=== PATIENT | female | born 1985 | race Caucasian/White ===

== ENCOUNTER 2021-08-30 13:42 | Emergency (ER) | payer OTHER ==
[2021-08-30 14:46] LABS: #Eosinphils 0.2 10x3/uL (0.0-0.5); #Monocytes 0.5 10x3/uL (0.0-1.1); #Neutrophils 4.7 10x3/uL (1.5-8.4); %Basophils 0.3 % (0.0-2.0); %Eosinophils 2.7 % (0.0-6.0); %Lymphocytes 26.3 % (18.0-47.0); %Monocytes 6.7 % (0.0-10.0); %Neutrophils 63.7 % (40.0-75.0); Hemoglobin 12.2 g/dL (12.0-15.5); Mean Corpuscular HGB CONC 33.2 g/dL (32.0-36.0); Mean Corpuscular Volume 90.6 fl (81.6-98.3); Platelet Count 303 10x3/uL (150-450); RBC Distribution Width 12.8 % (11.5-14.5); Red Blood Cell (RBC) Count 4.06 10x6/uL (3.90-5.03); White Blood Cell (WBC) Count 7.4 10x3/uL (3.5-10.5)
== END 2021-08-30 17:50 | disposition home or self-care (01) ==
LOC: CSHERS 13:42
DX: O20.0 Threatened abortion (principal); Z3A.01 Less than 8 weeks gestation of pregnancy
CPT/HCPCS: 36415; 76856; 84702; 85025; 86900; 86901; 90384; 96372

== ENCOUNTER 2022-05-25 16:52 | Inpatient (IN) | payer OTHER ==
[2022-05-25 17:53] VITALS: BMI 28.3
[2022-05-25] MEDS ORDERED: hydrALAZINE 20 MG/ML VIAL SLOW IVP PRN ×2 (18:35→21:53)
[2022-05-25 19:19] LABS: Fetal Membranes Rupture No Membranes Rupture (No Rupture)
[2022-05-25] MEDS ORDERED: Promethazine HCl 25 MG/ML VIAL IM PRN ×2 (21:53→23:36)
[2022-05-25] MEDS ORDERED: Butorphanol Tartrate 1 MG/ML VIAL SLOW IVP PRN (21:53)
[2022-05-25] MEDS ORDERED: Acetaminophen 500 MG TAB PO PRN (21:53)
[2022-05-25] MEDS ORDERED: Ibuprofen 800 MG TAB PO PRN (21:53)
[2022-05-25] MEDS ORDERED: Ondansetron PF 4 MG/2 ML Vial IVP PRN ×2 (21:53→23:36)
[2022-05-25] MEDS ORDERED: HYDROcodone/Acetaminophen 5/325 mg Tablet PO PRN ×2 (21:53)
[2022-05-25] MEDS ORDERED: Zolpidem Tartrate 5 MG TAB PO PRN (21:53)
[2022-05-25] MEDS ORDERED: Lidocaine 1% (PF) 30 ML VIAL SC PRN (21:53)
[2022-05-25] MEDS ORDERED: Lactated Ringer's 1,000 ML IV SCH (22:00)
[2022-05-25] MEDS ORDERED: NS w/ Oxytocin 30 units 500 ML IV SCH ×2 (22:00)
[2022-05-25] MEDS: Lactated Ringer's 1,000 ML IV SCH (22:15)
[2022-05-25 22:31] LABS: Hemoglobin 11.2 g/dL (12.0-15.5); Mean Corpuscular HGB CONC 34.4 g/dL (32.0-36.0); Mean Corpuscular Hemoglobin 31.1 pg (27.0-33.0); Mean Corpuscular Volume 90.6 fl (81.6-98.3); Mean Platelet Volume 11.2 fl (7.4-10.4); Platelet Count 231 10x3/uL (150-450); RBC Distribution Width 13.8 % (11.5-14.5); White Blood Cell (WBC) Count 12.5 10x3/uL (3.5-10.5)
[2022-05-25] MEDS ORDERED: Fentanyl 2 mcg/Bup 0.1% Cadd 100 ML ONE (22:56)
[2022-05-25 23:04] LABS: Syphilis Antibody Nonreactive (Nonreactive); Syphilis Antibody Index 0.13 S/CO (<1.00 Non-Reactive)
[2022-05-25 23:05] LABS: HBSAg Index 0.26 S/CO (0-0.99); Hep B Surf Ag Non-Reactive S/CO (NonReactive)
[2022-05-25] MEDS: Fentanyl 2 mcg/Bupivacaine 0.1% Cassette 100 ML EPIDURAL SCH (23:30)
[2022-05-25] MEDS ORDERED: Lactated Ringer's 500 ML IV PRN (23:36)
[2022-05-25] MEDS ORDERED: Moisturizing Cream (Eucerin) 113 GM JAR TOP PRN (23:36)
[2022-05-25] MEDS ORDERED: Acetaminophen 325 MG TAB PO PRN (23:36)
[2022-05-25] MEDS ORDERED: Naloxone HCl 0.4 mg/ml Vial IVP PRN ×2 (23:36)
[2022-05-25] MEDS ORDERED: ePHEDrine Sulfate 50 MG/10 ML VIAL SLOW IVP PRN (23:36)
[2022-05-25] MEDS ORDERED: diphenhydrAMINE 50 MG/ML VIAL IVP PRN (23:36)
[2022-05-25] MEDS ORDERED: Communication Order-Pharmacy FS SCH (23:45)
[2022-05-26 05:52] LABS: SARS-CoV-2 NAA Rapid Test Not Detected (NotDetected)
[2022-05-26] MEDS: Fentanyl 2 mcg/Bupivacaine 0.1% Cassette 100 ML EPIDURAL SCH (05:58)
[2022-05-26] MEDS ORDERED: Famotidine/PF 20 mg/2ml Vial SLOW IVP PRN (08:40)
[2022-05-26] MEDS ORDERED: Bicitra 30 ML UDCUP PO PRN (08:40)
[2022-05-26] MEDS ORDERED: CEFAZOLIN 2 GM in Sodium Chloride 0.9% 100 ML IVPB SCH (08:45)
[2022-05-26] MEDS ORDERED: Azithromycin 500 MG in Sodium Chloride 0.9% 250 ML 250 ML IVPB SCH (08:45)
[2022-05-26] MEDS ORDERED: ePHEDrine Sulfate 50 MG/10 ML VIAL ONE (09:10)
[2022-05-26] MEDS ORDERED: Dexamethasone 4 mg/ml Vial ONE (09:10)
[2022-05-26] MEDS ORDERED: Ondansetron PF 4 MG/2 ML Vial ONE (09:10)
[2022-05-26] MEDS ORDERED: Morphine PF 10 MG/10 ML VIAL ONE (09:10)
[2022-05-26] MEDS ORDERED: Ketorolac Tromethamine 30 MG/ML VIAL ONE (09:12)
[2022-05-26] MEDS ORDERED: PHENYLEPHRINE-NS 100 MCG/ML 10 ML SYRINGE ONE (09:12)
[2022-05-26] MEDS ORDERED: Oxytocin 10 UNITS/ML VIAL ONE (09:12)
[2022-05-26] MEDS ORDERED: Lidocaine 2% MPF 10 ML AMP (For Epidural Use) ONE (09:13)
[2022-05-26] MEDS ORDERED: Fentanyl 100 MCG/2 ML VIAL ONE ×2 (09:33→09:58)
[2022-05-26] MEDS ORDERED: Ketamine 50 MG/ML (10ML VIAL) ONE (09:33)
[2022-05-26] MEDS ORDERED: Midazolam HCl 2 mg/2 ml Vial ONE (09:33)
[2022-05-26] MEDS ORDERED: Methylergonovine 0.2 MG/ML VIAL ONE (09:52)
[2022-05-26] MEDS ORDERED: Carboprost 250 MCG/ML AMP ONE (09:53)
[2022-05-26] MEDS ORDERED: Misoprostol 200 MCG TAB ONE (09:53)
[2022-05-26] MEDS ORDERED: Meperidine HCl/PF 25 MG/ML VIAL SLOW IVP PRN (10:34)
[2022-05-26] MEDS ORDERED: Promethazine HCl 25 MG/ML VIAL IM PRN (10:34)
[2022-05-26] MEDS ORDERED: diphenhydrAMINE 50 MG/ML VIAL IVP PRN (10:34)
[2022-05-26] MEDS ORDERED: Naloxone HCl 0.4 mg/ml Vial IV PRN (10:34)
[2022-05-26] MEDS ORDERED: Ondansetron PF 4 MG/2 ML Vial IVP PRN ×2 (10:34→12:42)
[2022-05-26] MEDS ORDERED: HYDROmorphone 2 MG/ML VIAL SLOW IVP PRN (10:34)
[2022-05-26] MEDS ORDERED: Moisturizing Cream (Eucerin) 113 GM JAR TOP PRN (10:34)
[2022-05-26] MEDS ORDERED: Fentanyl 100 MCG/2 ML VIAL SLOW IVP PRN (10:34)
[2022-05-26] MEDS ORDERED: Ondansetron HCl/PF 4 MG/2 ML Vial IVP PRN (10:34)
[2022-05-26] MEDS ORDERED: Naloxone HCl 0.4 mg/ml Vial IVP PRN ×2 (10:34)
[2022-05-26] MEDS ORDERED: Promethazine HCl 25 MG SUPP PR PRN (10:34)
[2022-05-26] MEDS ORDERED: Ketorolac Tromethamine 30 MG/ML VIAL IVP SCH (10:45)
[2022-05-26] MEDS ORDERED: Communication Order-Pharmacy FS SCH (10:45)
[2022-05-26] MEDS ORDERED: Bisacodyl 10 MG SUPP PR PRN (12:42)
[2022-05-26] MEDS ORDERED: Acetaminophen 325 MG TAB PO PRN (12:42)
[2022-05-26] MEDS ORDERED: Lanolin Ointment 7 GM TUBE TOP PRN (12:42)
[2022-05-26] MEDS ORDERED: diphenhydrAMINE 25 MG CAP PO PRN (12:42)
[2022-05-26] MEDS ORDERED: hydrALAZINE 20 MG/ML VIAL SLOW IVP PRN (12:42)
[2022-05-26] MEDS ORDERED: Boostrix 0.5 ML (Tdap) VIAL (>/=7 yrs of age) IM ONE (12:42)
[2022-05-26] MEDS: Lactated Ringer's 1,000 ML IV SCH (13:28)
[2022-05-26] MEDS: Ketorolac Tromethamine 30 MG/ML VIAL IVP PRN (17:38)
[2022-05-26] MEDS: Ferrous Sulfate 325 MG TAB PO SCH (19:12)
[2022-05-26] MEDS ORDERED: FLUoxetine HCl 20 MG CAP PO SCH (21:00)
[2022-05-26] MEDS: busPIRone HCl 15 MG TAB PO SCH (21:00)
[2022-05-26] MEDS: Docusate 100 MG CAP PO SCH (21:05)
[2022-05-26] MEDS ORDERED: Zolpidem Tartrate 5 MG TAB PO PRN (22:45)
[2022-05-27 04:42] LABS: Hemoglobin 8.4 g/dL (12.0-15.5); Mean Corpuscular HGB CONC 33.9 g/dL (32.0-36.0); Mean Corpuscular Hemoglobin 31.3 pg (27.0-33.0); Mean Corpuscular Volume 92.5 fl (81.6-98.3); Mean Platelet Volume 10.6 fl (7.4-10.4); Platelet Count 145 10x3/uL (150-450); Red Blood Cell (RBC) Count 2.68 10x6/uL (3.90-5.03); White Blood Cell (WBC) Count 11.6 10x3/uL (3.5-10.5)
[2022-05-27] MEDS: HYDROcodone/Acetaminophen 5/325 mg Tablet PO PRN ×4 (05:07→23:52)
[2022-05-27] MEDS: Ferrous Sulfate 325 MG TAB PO SCH ×2 (08:49→21:11)
[2022-05-27] MEDS: Docusate 100 MG CAP PO SCH ×2 (08:50→21:11)
[2022-05-27] MEDS: Prenatal Vitamin 1 TAB PO SCH (08:50)
[2022-05-27] MEDS: busPIRone HCl 15 MG TAB PO SCH ×2 (08:51→21:11)
[2022-05-27] MEDS ORDERED: FLUoxetine HCl 20 MG CAP PO SCH (09:00)
[2022-05-27] MEDS: Ketorolac Tromethamine 30 MG/ML VIAL IVP PRN (09:30)
[2022-05-27] MEDS: Ibuprofen 800 MG TAB PO SCH ×2 (15:49→23:48)
[2022-05-27] MEDS: FLUoxetine HCl 20 MG CAP PO SCH (21:10)
[2022-05-28] MEDS: Ibuprofen 800 MG TAB PO SCH ×3 (05:47→21:21)
[2022-05-28] MEDS: Simethicone Chewable 80 MG TAB PO PRN (06:11)
[2022-05-28] MEDS: Prenatal Vitamin 1 TAB PO SCH (08:45)
[2022-05-28] MEDS: Docusate 100 MG CAP PO SCH ×2 (08:46→21:22)
[2022-05-28] MEDS: Ferrous Sulfate 325 MG TAB PO SCH ×2 (08:46→21:22)
[2022-05-28] MEDS: busPIRone HCl 15 MG TAB PO SCH ×2 (08:46→21:22)
[2022-05-28] MEDS: HYDROcodone/Acetaminophen 5/325 mg Tablet PO PRN ×3 (08:47→19:56)
[2022-05-28] MEDS: FLUoxetine HCl 20 MG CAP PO SCH (21:22)
[2022-05-29] MEDS: Prenatal Vitamin 1 TAB PO SCH (07:59)
[2022-05-29] MEDS: HYDROcodone/Acetaminophen 5/325 mg Tablet PO PRN ×4 (08:00→23:50)
[2022-05-29] MEDS: Docusate 100 MG CAP PO SCH ×2 (08:01→20:55)
[2022-05-29] MEDS: Ferrous Sulfate 325 MG TAB PO SCH ×2 (08:01→20:55)
[2022-05-29] MEDS: busPIRone HCl 15 MG TAB PO SCH ×2 (08:10→20:55)
[2022-05-29] MEDS: Ibuprofen 800 MG TAB PO SCH ×3 (11:39→22:00)
[2022-05-29] MEDS: FLUoxetine HCl 20 MG CAP PO SCH (20:55)
[2022-05-30] MEDS: Ibuprofen 800 MG TAB PO SCH ×2 (05:03→13:36)
[2022-05-30] MEDS: Prenatal Vitamin 1 TAB PO SCH (08:19)
[2022-05-30] MEDS: busPIRone HCl 15 MG TAB PO SCH (08:19)
[2022-05-30] MEDS: Docusate 100 MG CAP PO SCH (08:19)
[2022-05-30] MEDS: Ferrous Sulfate 325 MG TAB PO SCH (08:19)
[2022-05-30 10:08] VITALS: BP 130/74; TEMP 98.3
[2022-05-30] MEDS: HYDROcodone/Acetaminophen 5/325 mg Tablet PO PRN ×2 (11:53→16:05)
[2022-05-30] MEDS: Simethicone Chewable 80 MG TAB PO PRN (13:51)
== END 2022-05-30 16:43 | disposition home or self-care (01) | DRG 788 ==
LOC: CSHLD/OP 16:52 → CSHLD 21:45 → CSHPP 05-26 13:04
PROVIDERS: ADMIT Student in an Organized Health Care Education/Training Program; ATTEND Student in an Organized Health Care Education/Training Program
PROC: 10D00Z1 Extraction of Products of Conception, Low, Open Approach (ICD-10-PCS; principal; 2022-05-26)
DX: O99.344 Other mental disorders complicating childbirth (principal); F41.9 Anxiety disorder, unspecified; F31.9 Bipolar disorder, unspecified; O32.8XX0 Maternal care for other malpresentation of fetus, not applicable or unspecified; Z20.822 Contact with and (suspected) exposure to COVID-19; Z37.0 Single live birth; Z3A.38 38 weeks gestation of pregnancy; Z91.040 Latex allergy status; Z91.018 Allergy to other foods; Z79.899 Other long term (current) drug therapy; O26.893 Other specified pregnancy related conditions, third trimester; Z67.41 Type O blood, Rh negative; O62.1 Secondary uterine inertia; O62.2 Other uterine inertia; D50.8 Other iron deficiency anemias; O90.81 Anemia of the puerperium
CPT/HCPCS: 36415; 51702; 84112; 85027; 86780; 86850; 86900; 86901; 87340; 99285; J1100; J1885; J2210; J2250; J2274; J2405; J2590; J3010; J3490; J7120; U0002